=== PATIENT | male | born 1995 | race Caucasian/White ===

== ENCOUNTER 2022-10-04 18:31 | Emergency (ER) | payer OTHER, MEDICAID, SELFPAY ==
[2022-10-04] VITALS (14 sets, daily range): BP systolic 99–140; BP diastolic 52–82; PULSE 80–101; RESP 15–24; TEMP 36.9; O2SAT 95–99; BMI 19.5
--- NOTE | 2022-10-04 18:40 | ED.PSYCH ---
HPI - Psych <DO Graciela Velazquez Last Filed: 10/09/22 02:46> General Chief Complaint: Psychiatric Symptoms Stated Complaint: Ingested a whole bottle of anti-depren medication Time Seen by Provider: 10/04/22 18:40 History of Present Illness HPI Narrative: 27-year-old male smoker without known chronic medical history presents for evaluation of suicidal ideation and attempt earlier today. The patient states that he had been in his normal state of health and went to a music festival over the course of the weekend and consumed a large amount of recreational drugs including ecstasy, cocaine, lipids and Xanax. It is reported that he took trazodone 100 mg tablets times 10 pills earlier today at about 10:00 a.m. to noon in an attempt to kill himself. He had reported this to his girlfriend who is with him at bedside. He had become drowsy but maintaining his airway and controlling secretions without difficulty. He states that he still has suicidal thoughts. He has had these in the past but denies any prior attempt. He has been attempting to connect with a therapist in the community but has thus far been unsuccessful and currently does not have anyone that he routinely Related Data Allergies Allergy/AdvReac Type Severity Reaction Status Date / Time No Known Drug Allergies Allergy Verified 10/04/22 18:53 Review of Systems <DO Graciela Velazquez Last Filed: 10/09/22 02:46> Review of Systems Narrative: GENERAL: See HPI HEENT: Denies sinus pain, ear pain, sore throat, difficulty swallowing, dizziness. RESPIRATORY: Denies dyspnea, cough, wheezing, hemoptysis, sputum. CARDIOVASCULAR: Denies chest pain, palpitations, orthopnea, edema, GASTROINTESTINAL: Denies nausea, vomiting, abdominal pain, diarrhea, constipation, melena. : Denies dysuria, frequency, incontinence, hematuria, urinary retention. MUSCULOSKELETAL: denies weakness, joint pain, or bony pain SKIN: Denies rash, skin lesions, or other NEUROLOGIC: Denies weakness, headache, numbness, change in speech, confusion, seizures, incoordination. PSYCHIATRIC: See HPI 12 point review of systems is negative except for those stated above Patient History <DO Graciela Velazquez Filed: 10/09/22 02:46> Social History Smoking Status: Current every day smoker Exam <Armando Fajardo DO - Last Filed: 10/09/22 02:46> Narrative Exam Narrative: GENERAL: [89] year old patient appears stated age. Well-developed patient, in mild distress. Slurring his words slightly, slightly somnolent but easily arousable HEAD: Atraumatic. Normocephalic. EYES: Pupils equal round and reactive. Extraocular motions intact. No scleral icterus. No injection or drainage. ENT: Nose without bleeding, purulent drainage. Throat without erythema, tonsillar hypertrophy or exudate. Airway patent. Controlling secretions, guarding airway NECK: Trachea midline. Non tender CARDIOVASCULAR: Regular rate and rhythm without murmurs, gallops, or rubs. RESPIRATORY: Clear to auscultation. Breath sounds equal bilaterally. No wheezes, rales, or rhonchi. GASTROINTESTINAL: Abdomen soft, non-tender, nondistended. EXTREMITIES: No edema or joint tenderness. BACK: Nontender without deformity or crepitance. No flank tenderness. NEURO: AOx3. SKIN: No rash or erythema of visible areas Initial Vital Signs Initial Vital Signs: Vital Signs Temperature 98.4 F 10/04/22 18:53 Pulse Rate 94 H 10/04/22 18:53 Respiratory Rate 16 10/04/22 18:53 Blood Pressure 129/82 10/04/22 18:53 Pulse Oximetry 97 10/04/22 18:53 Oxygen Delivery Method Room Air 10/04/22 18:53 <Jacy Sheets, - Last Filed: 10/05/22 18:09> Initial Vital Signs Initial Vital Signs: Vital Signs Temperature 98.4 F 10/04/22 18:53 Pulse Rate 94 H 10/04/22 18:53 Respiratory Rate 16 10/04/22 18:53 Blood Pressure 129/82 10/04/22 18:53 Pulse Oximetry 97 10/04/22 18:53 Oxygen Delivery Method Room Air 10/04/22 18:53 Course <Armando Fajardo DO - Last Filed: 10/09/22 02:46> Course Course Narrative: Nursing contacted poison control on patient arrival and they recommend observation for 6 hours. Social work attempted evaluation but patient was still under the influence and not able to appropriately contribute to the exam Orders Ordered: Discontinued Medications Acetaminophen (Acetaminophen 325 Mg Tablet) 650 mg PO NOW ONE Stop: 10/05/22 14:32 Last Admin: 10/05/22 14:34 Dose: 650 mg Documented By: STEPHEN Al Hydrox/Mg Hydrox/Simethicone (Mag Hydrox/Alum/Simeth 30 Ml Udc) 30 ml PO NOW ONE Stop: 10/05/22 05:55 Last Admin: 10/05/22 05:58 Dose: 30 ml Documented By: GC Famotidine (Famotidine 20 Mg Tablet) 20 mg PO DAILY AILEEN Last Admin: 10/05/22 11:34 Dose: 20 mg Documented By: RB Ibuprofen (Ibuprofen 400 Mg Tablet) 800 mg PO NOW ONE Stop: 10/05/22 16:59 Last Admin: 10/05/22 17:03 Dose: 800 mg Documented By: RB Reevaluation(s) Reevaluation #1: Patient re-evaluated and is awake, alert and oriented, speaking clearly. He does state that he still is having suicidal thoughts and wishes to wait for social work consultation in the morning Vital Signs Vital signs: Vital Signs - 8 hr 10/05/22 10:30 10/05/22 11:00 10/05/22 11:30 Pulse Rate 84 93 H 86 Respiratory Rate 13 21 16 Blood Pressure Pulse Oximetry 97 98 98 10/05/22 12:00 10/05/22 12:30 10/05/22 13:00 Pulse Rate 78 81 89 Respiratory Rate 17 17 15 Blood Pressure Pulse Oximetry 98 97 98 10/05/22 13:06 10/05/22 13:06 10/05/22 13:30 Pulse Rate 88 90 Respiratory Rate 14 Blood Pressure 107/60 Pulse Oximetry 97 98 10/05/22 14:00 10/05/22 14:15 10/05/22 14:15 Pulse Rate 91 H 87 Respiratory Rate 15 Blood Pressure 139/66 Pulse Oximetry 98 98 10/05/22 16:51 10/05/22 16:49 10/05/22 16:50 Pulse Rate 82 81 82 Respiratory Rate 14 Blood Pressure 131/61 Pulse Oximetry 98 99 98 10/05/22 16:50 Pulse Rate Respiratory Rate Blood Pressure 131/61 Pulse Oximetry <Jacy Sheets, - Last Filed: 10/05/22 18:09> Orders Ordered: Discontinued Medications Acetaminophen (Acetaminophen 325 Mg Tablet) 650 mg PO NOW ONE Stop: 10/05/22 14:32 Last Admin: 10/05/22 14:34 Dose: 650 mg Documented By: KB Al Hydrox/Mg Hydrox/Simethicone (Mag Hydrox/Alum/Simeth 30 Ml Udc) 30 ml PO NOW ONE Stop: 10/05/22 05:55 Last Admin: 10/05/22 05:58 Dose: 30 ml Documented By: GC Famotidine (Famotidine 20 Mg Tablet) 20 mg PO DAILY AILEEN Last Admin: 10/05/22 11:34 Dose: 20 mg Documented By: RB Ibuprofen (Ibuprofen 400 Mg Tablet) 800 mg PO NOW ONE Stop: 10/05/22 16:59 Last Admin: 10/05/22 17:03 Dose: 800 mg Documented By: RB Vital Signs Vital signs: Vital Signs - 8 hr 10/05/22 10:30 10/05/22 11:00 10/05/22 11:30 Pulse Rate 84 93 H 86 Respiratory Rate 13 21 16 Blood Pressure Pulse Oximetry 97 98 98 10/05/22 12:00 10/05/22 12:30 10/05/22 13:00 Pulse Rate 78 81 89 Respiratory Rate 17 17 15 Blood Pressure Pulse Oximetry 98 97 98 10/05/22 13:06 10/05/22 13:06 10/05/22 13:30 Pulse Rate 88 90 Respiratory Rate 14 Blood Pressure 107/60 Pulse Oximetry 97 98 10/05/22 14:00 10/05/22 14:15 10/05/22 14:15 Pulse Rate 91 H 87 Respiratory Rate 15 Blood Pressure 139/66 Pulse Oximetry 98 98 10/05/22 16:51 10/05/22 16:49 10/05/22 16:50 Pulse Rate 82 81 82 Respiratory Rate 14 Blood Pressure 131/61 Pulse Oximetry 98 99 98 10/05/22 16:50 Pulse Rate Respiratory Rate Blood Pressure 131/61 Pulse Oximetry MDM - Psych <Armando Fajardo, - Last Filed: 10/09/22 02:46> Lab Data 10/04/22 19:35 10/04/22 19:35 Labs: Lab Results 10/04/22 10/04/22 10/04/22 Range/Units 19:30 19:35 19:35 WBC 8.2 (4.5-11.0) X10^3/uL RBC 4.55 (4.5-5.9) X10^6/uL Hgb 14.2 (13.5-17.5) g/dL Hct 40.4 L (41-53) % MCV 88.9 (80-100) fL MCH 31.3 (26-34) PG MCHC 35.2 (30-36) % RDW 12.7 (11.6-14.8) % Plt Count 356 (150-400) X10^3/uL Neut % (Auto) 76.7 H (50-75) % Lymph % (Auto) 14.5 L (25-40) % [place] % (Auto) 6.9 (3-14) % Eos % (Auto) 1.1 L (2-4) % Baso % (Auto) 0.8 (0-2) % Neut # (Auto) 6300 (3902-4112) /uL Lymph # (Auto) 1200 (5252-5005) /uL [place] # (Auto) 600 (0-900) /uL Eos # (Auto) 100 (0-450) /uL Baso # (Auto) 100 (0-100) /uL Sodium 134 L (137-145) mmol/L Potassium 3.9 (3.4-5.1) mmol/L Chloride 99 (98-107) mmol/L Carbon Dioxide 28 (22-32) mmol/L BUN 10 (9-20) mg/dL Creatinine 0.87 (0.66-1.25) mg/dL Estimated GFR > 60 (>60) mL/min BUN/Creatinine Ratio 11.5 (6-22) Glucose 223 H (70-100) mg/dL Calcium 9.0 (8.4-10.2) mg/dL Total Bilirubin 0.6 (0.2-1.3) mg/dL AST 26 (17-59) IU/L ALT 23 (<50) IU/L Alkaline Phosphatase 63 (38-126) U/L Total Protein 7.0 (6.3-8.2) g/dL Albumin 4.0 (3.5-5.0) g/dL Globulin 3.0 (1.7-4.1) g/dL Albumin/Globulin Ratio 1.3 (1.0-2.8) TSH (0.47-4.68) uIU/mL Free T4 (0.78-2.19) ng/dL Salicylates < 1.0 (<20) mg/dL U Opiates 300ng/mL cut Negative (Negative) Ur Oxycodone Screen Negative (Negative) Urine Methadone Screen Negative (Negative) Acetaminophen < 10 (10-30) ug/mL Ur Barbiturates Screen Negative (Negative) U Tricyclic Antidepress Negative (Negative) Ur Phencyclidine Scrn Negative (Negative) Ur Amphetamines Screen Positive H (Negative) U Methamphetamines Scrn Positive H (Negative) Ur MDMA Scrn (Ecstasy) Positive H (Negative) U Benzodiazepines Scrn Positive H (Negative) Urine Cocaine Screen Positive H (Negative) U Marijuana (THC) Screen Positive H (Negative) Ethyl Alcohol < 10 ( - 10) mg/dL SARS-CoV-2 (PCR) (Negative) 10/04/22 10/05/22 Range/Units 19:35 14:36 WBC (4.5-11.0) X10^3/uL RBC (4.5-5.9) X10^6/uL Hgb (13.5-17.5) g/dL Hct (41-53) % MCV (80-100) fL MCH (26-34) PG MCHC (30-36) % RDW (11.6-14.8) % Plt Count (150-400) X10^3/uL Neut % (Auto) (50-75) % Lymph % (Auto) (25-40) % [place] % (Auto) (3-14) % Eos % (Auto) (2-4) % Baso % (Auto) (0-2) % Neut # (Auto) (4355-7537) /uL Lymph # (Auto) (7395-1435) /uL [place] # (Auto) (0-900) /uL Eos # (Auto) (0-450) /uL Baso # (Auto) (0-100) /uL Sodium (137-145) mmol/L Potassium (3.4-5.1) mmol/L Chloride (98-107) mmol/L Carbon Dioxide (22-32) mmol/L BUN (9-20) mg/dL Creatinine (0.66-1.25) mg/dL Estimated GFR (>60) mL/min BUN/Creatinine Ratio (6-22) Glucose (70-100) mg/dL Calcium (8.4-10.2) mg/dL Total Bilirubin (0.2-1.3) mg/dL AST (17-59) IU/L ALT (<50) IU/L Alkaline Phosphatase (38-126) U/L Total Protein (6.3-8.2) g/dL Albumin (3.5-5.0) g/dL Globulin (1.7-4.1) g/dL Albumin/Globulin Ratio (1.0-2.8) TSH 0.365 L (0.47-4.68) uIU/mL Free T4 0.86 (0.78-2.19) ng/dL Salicylates (<20) mg/dL U Opiates 300ng/mL cut (Negative) Ur Oxycodone Screen (Negative) Urine Methadone Screen (Negative) Acetaminophen (10-30) ug/mL Ur Barbiturates Screen (Negative) U Tricyclic Antidepress (Negative) Ur Phencyclidine Scrn (Negative) Ur Amphetamines Screen (Negative) U Methamphetamines Scrn (Negative) Ur MDMA Scrn (Ecstasy) (Negative) U Benzodiazepines Scrn (Negative) Urine Cocaine Screen (Negative) U Marijuana (THC) Screen (Negative) Ethyl Alcohol ( - 10) mg/dL SARS-CoV-2 (PCR) Negative (Negative) Urine Dip Bedside Urine Glucose Negative Bedside Urine Bilirubin - Negative Bedside Urine Ketone - Negative Urine Specific [place] 1.005 Bedside Urine Occult Blood - Negative Bedside Urine pH 6.5 Bedside Urine Protein - Negative Bedside Urine Urobilinogen - Negative Bedside Urine Nitrite - Negative Bedside Urine Leukocytes - Negative Esterase MDM Narrative Medical decision making narrative: 27-year-old male presents with suicidal ideation and attempt, thankfully he is nearly out of the observation window for the trazodone at time of arrival but over the course of the night continues to serious suicidal ideations and has had trouble establishing with a therapist in the community. He wishes to see social work here later today to discuss options. Patient signed out to Dr. Sheets for final disposition <Jacy Sheets, - Last Filed: 10/05/22 18:09> Lab Data Labs: Lab Results 10/04/22 10/04/22 10/04/22 Range/Units 19:30 19:35 19:35 WBC 8.2 (4.5-11.0) X10^3/uL RBC 4.55 (4.5-5.9) X10^6/uL Hgb 14.2 (13.5-17.5) g/dL Hct 40.4 L (41-53) % MCV 88.9 (80-100) fL MCH 31.3 (26-34) PG MCHC 35.2 (30-36) % RDW 12.7 (11.6-14.8) % Plt Count 356 (150-400) X10^3/uL Neut % (Auto) 76.7 H (50-75) % Lymph % (Auto) 14.5 L (25-40) % [place] % (Auto) 6.9 (3-14) % Eos % (Auto) 1.1 L (2-4) % Baso % (Auto) 0.8 (0-2) % Neut # (Auto) 6300 (5611-7259) /uL Lymph # (Auto) 1200 (6522-4423) /uL [place] # (Auto) 600 (0-900) /uL Eos # (Auto) 100 (0-450) /uL Baso # (Auto) 100 (0-100) /uL Sodium 134 L (137-145) mmol/L Potassium 3.9 (3.4-5.1) mmol/L Chloride 99 (98-107) mmol/L Carbon Dioxide 28 (22-32) mmol/L BUN 10 (9-20) mg/dL Creatinine 0.87 (0.66-1.25) mg/dL Estimated GFR > 60 (>60) mL/min BUN/Creatinine Ratio 11.5 (6-22) Glucose 223 H (70-100) mg/dL Calcium 9.0 (8.4-10.2) mg/dL Total Bilirubin 0.6 (0.2-1.3) mg/dL AST 26 (17-59) IU/L ALT 23 (<50) IU/L Alkaline Phosphatase 63 (38-126) U/L Total Protein 7.0 (6.3-8.2) g/dL Albumin 4.0 (3.5-5.0) g/dL Globulin 3.0 (1.7-4.1) g/dL Albumin/Globulin Ratio 1.3 (1.0-2.8) TSH (0.47-4.68) uIU/mL Free T4 (0.78-2.19) ng/dL Salicylates < 1.0 (<20) mg/dL U Opiates 300ng/mL cut Negative (Negative) Ur Oxycodone Screen Negative (Negative) Urine Methadone Screen Negative (Negative) Acetaminophen < 10 (10-30) ug/mL Ur Barbiturates Screen Negative (Negative) U Tricyclic Antidepress Negative (Negative) Ur Phencyclidine Scrn Negative (Negative) Ur Amphetamines Screen Positive H (Negative) U Methamphetamines Scrn Positive H (Negative) Ur MDMA Scrn (Ecstasy) Positive H (Negative) U Benzodiazepines Scrn Positive H (Negative) Urine Cocaine Screen Positive H (Negative) U Marijuana (THC) Screen Positive H (Negative) Ethyl Alcohol < 10 ( - 10) mg/dL SARS-CoV-2 (PCR) (Negative) 10/04/22 10/05/22 Range/Units 19:35 14:36 WBC (4.5-11.0) X10^3/uL RBC (4.5-5.9) X10^6/uL Hgb (13.5-17.5) g/dL Hct (41-53) % MCV (80-100) fL MCH (26-34) PG MCHC (30-36) % RDW (11.6-14.8) % Plt Count (150-400) X10^3/uL Neut % (Auto) (50-75) % Lymph % (Auto) (25-40) % [place] % (Auto) (3-14) % Eos % (Auto) (2-4) % Baso % (Auto) (0-2) % Neut # (Auto) (8439-2818) /uL Lymph # (Auto) (0918-5020) /uL [place] # (Auto) (0-900) /uL Eos # (Auto) (0-450) /uL Baso # (Auto) (0-100) /uL Sodium (137-145) mmol/L Potassium (3.4-5.1) mmol/L Chloride (98-107) mmol/L Carbon Dioxide (22-32) mmol/L BUN (9-20) mg/dL Creatinine (0.66-1.25) mg/dL Estimated GFR (>60) mL/min BUN/Creatinine Ratio (6-22) Glucose (70-100) mg/dL Calcium (8.4-10.2) mg/dL Total Bilirubin (0.2-1.3) mg/dL AST (17-59) IU/L ALT (<50) IU/L Alkaline Phosphatase (38-126) U/L Total Protein (6.3-8.2) g/dL Albumin (3.5-5.0) g/dL Globulin (1.7-4.1) g/dL Albumin/Globulin Ratio (1.0-2.8) TSH 0.365 L (0.47-4.68) uIU/mL Free T4 0.86 (0.78-2.19) ng/dL Salicylates (<20) mg/dL U Opiates 300ng/mL cut (Negative) Ur Oxycodone Screen (Negative) Urine Methadone Screen (Negative) Acetaminophen (10-30) ug/mL Ur Barbiturates Screen (Negative) U Tricyclic Antidepress (Negative) Ur Phencyclidine Scrn (Negative) Ur Amphetamines Screen (Negative) U Methamphetamines Scrn (Negative) Ur MDMA Scrn (Ecstasy) (Negative) U Benzodiazepines Scrn (Negative) Urine Cocaine Screen (Negative) U Marijuana (THC) Screen (Negative) Ethyl Alcohol ( - 10) mg/dL SARS-CoV-2 (PCR) Negative (Negative) Urine Dip Bedside Urine Glucose Negative Bedside Urine Bilirubin - Negative Bedside Urine Ketone - Negative Urine Specific [place] 1.005 Bedside Urine Occult Blood - Negative Bedside Urine pH 6.5 Bedside Urine Protein - Negative Bedside Urine Urobilinogen - Negative Bedside Urine Nitrite - Negative Bedside Urine Leukocytes - Negative Esterase MDM Narrative Medical decision making narrative: 27-year-old male presents with suicidal ideation and attempt, thankfully he is nearly out of the observation window for the trazodone at time of arrival but over the course of the night continues to serious suicidal ideations and has had trouble establishing with a therapist in the community. He wishes to see social work here later today to discuss options. Patient signed out to Dr. Sheets for final disposition Patient with [employer] requesting voluntary placement. Patient has been medically cleared. [facility] accepts but required EKG as QTC had trended upwards even though it has been far outside 24 hours and he had been cleared at 6:00 a.m. per poison control. Patient's repeat EKG shows a rate of 72, IL 150 QRS 80 QTC of 400. No acute ST changes. Patient continues to be medically cleared. Accepted by [facility]. Discharge Plan Departure Patient Disposition: Xfer Psychiatric Hosp Clinical Impression: Depression with suicidal ideation, Suicide attempt, Polysubstance abuse Referrals: Rajiv Galvez MD [Primary Care Provider] -
--- NOTE | 2022-10-04 19:10 | PC.NURSE ---
Poison control called They expected mild drowsiness. Treatment-supportive care,at least 6 hours after ingestion monitoring Tox screen,EKG (QT prlonged)
[2022-10-04 19:46] LABS: Add Manual Diff / Slide Review NO; Basophils Absolute Auto 100 /uL (0-100); Basophils Percent Auto 0.8 % (0-2); Eosinophils Absolute Auto 100 /uL (0-450); Eosinophils Percent Auto 1.1 % (2-4); Hematocrit 40.4 % (41-53); Hemoglobin 14.2 g/dL (13.5-17.5); Lymphocytes Absolute Auto 1200 /uL (1100-4500); Lymphocytes Percent Auto 14.5 % (25-40); Mean Corpuscular HGB Conc 35.2 % (30-36); Mean Corpuscular Hemoglobin 31.3 PG (26-34); Mean Corpuscular Volume 88.9 fL (80-100); Monocytes Absolute Auto 600 /uL (0-900); Monocytes Percent Auto 6.9 % (3-14); Neutrophils Absolute Auto 6300 /uL (1500-7000); Neutrophils Percent Auto 76.7 % (50-75); Platelet Count 356 X10^3/uL (150-400); Red Blood Cell Count 4.55 X10^6/uL (4.5-5.9); Red Cell Distribution Width 12.7 % (11.6-14.8); White Blood Cell Count 8.2 X10^3/uL (4.5-11.0)
[2022-10-04 19:48] LABS: UR Morphine/Opiate cutoff 300 Negative (Negative); Ur Creatinine Normal (Normal); Ur Specific Gravity Normal (Normal); Urine Amphetamines Positive (Negative); Urine Barbiturates Negative (Negative); Urine Benzodiazepines Positive (Negative); Urine Cocaine Positive (Negative); Urine MDMA Positive (Negative); Urine Methadone Negative (Negative); Urine Methamphetamines Positive (Negative); Urine Oxycodone Negative (Negative); Urine Phencyclidine Negative (Negative); Urine Tetrahydrocannabinol Positive (Negative); Urine Tricyclic Antidepressant Negative (Negative); Urine pH Normal (Normal)
[2022-10-04 20:03] LABS: Acetaminophen < 10 ug/mL (10-30); Alanine Aminotransferase 23 IU/L (<50); Albumin Globulin Ratio 1.3 (1.0-2.8); Alkaline Phosphatase 63 U/L (38-126); Aspartate Aminotransferase 26 IU/L (17-59); BUN Creatinine Ratio 11.5 (6-22); Bilirubin Total 0.6 mg/dL (0.2-1.3); Blood Urea Nitrogen 10 mg/dL (9-20); Carbon Dioxide 28 mmol/L (22-32); Chloride 99 mmol/L (98-107); Estimated Glomerular Filt Rate > 60 mL/min (>60); Ethanol (ETOH) < 10 mg/dL; Glucose 223 mg/dL (70-100); HEMOLYSIS < 15 (0-50); Potassium 3.9 mmol/L (3.4-5.1); Salicylate < 1.0 mg/dL (<20); Sodium 134 mmol/L (137-145)
--- NOTE | 2022-10-04 20:04 | CM.SWNOTE ---
RUBBER COMPOUNDER SUPERVISOR Assessment Note Patient is 27 y/o male who presents to ED via POV with ex girlfriend after taking Ectacy, cocaine, whipits and xanax at music festival at the [facility] [place] this past weekend. Patient endorses today he took 10 trazadone 100mg (not prescribed to him) earlier today between 10-12 with intent to kill self. Patient states I didn't want to wake up. RUBBER COMPOUNDER SUPERVISOR enters room to meet with patient, present in room is patient's ex girlfriend. Patient gives consent for ex girlfriend to be present during assessment. Patient presents as A/Ox3, patient presents as euthymic but fatigued, full range, congruent with mood. Patient endorses hx of SI but denies plans. Patient endorses he took trazadone this morning with intent to kill self when he was on the influence of drugs. Patient and ex girlfriend endorse that patient is in the the process of moving, recently broke up with girlfriend and got into an argument due to concern for patient's drug use. ex girlfriend has concerns for patient's self destructive behaviors. It is reported a year ago patient was pulled over for reckless driving when experiencing SI and LE stayed with patient but patient did not go to hospital. Patient's ex girlfriend endorses concern that patient's parents are addicts, patient has addictive personality and is concerned for his susceptibility to become addicted to substances. It is reported that patient is in the process of looking into MH providers that accept his insurance and patient has PCP appt on 10/06/[address] Gonzalez. Patient denies HI, hx of previous suicide attempts or hx of self harm. Patient endorses hx of ETOH use. 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 It is reported that patient has several supports from ex girlfriend, her parents and patient's co-workers. Patient endorses difficulty expressing self but is more open to MH outpatient and JIN providers than before. RUBBER COMPOUNDER SUPERVISOR discusses voluntary hospitalization, patient endorses he would like to discuss this with his boss first because he does not know if he could get time off work. RUBBER COMPOUNDER SUPERVISOR discusses that a medical note could be provided. Patient primarily endorsed preference to discharge to home. Poison control was contacted and patient will need at least 6 hours of monitoring and observation in ED. It is the opinion of this RUBBER COMPOUNDER SUPERVISOR that patient should be re-evaluated upon medical clearance to discuss appropriate plan of care. RUBBER COMPOUNDER SUPERVISOR reviews the above with ED provider who indicates agreement and understanding. RUBBER COMPOUNDER SUPERVISOR discusses with patient that RUBBER COMPOUNDER SUPERVISOR and/or ED provider will re-evaluate patient in the morning and discuss plan of care. RUBBER COMPOUNDER SUPERVISOR reports that if patient is discharged before RUBBER COMPOUNDER SUPERVISOR arrives to work tomorrow, RUBBER COMPOUNDER SUPERVISOR will call patient. Patient indicates agreement and understanding. Patient endorses he has crisis contact information, RUBBER COMPOUNDER SUPERVISOR discusses the importance of reaching out to supports when having intrusive thoughts. Plan: ED provider to assess and monitor patient further per poison control recommendations. ED provider and RUBBER COMPOUNDER SUPERVISOR to evaluate patient further upon medical clearance regarding appropriate plan of care. If patient discharges to home prior to RUBBER COMPOUNDER SUPERVISOR's arrival to work, RUBBER COMPOUNDER SUPERVISOR to call patient to f/u with outpatient resources. Evelyn Garcia, SEARCH ENGINE OPTIMIZER
[2022-10-04 20:33] LABS: Free T4, Direct Thyroxine 0.86 ng/dL (0.78-2.19)
[2022-10-04 20:47] LABS: Thyroid Stimulating Hormone 0.365 uIU/mL (0.47-4.68)
--- NOTE | 2022-10-04 21:16 | PC.NURSE ---
Poison control called & updated on labs & ekg. They stated that at this point it was safe to close the case on there end. Dr Fajardo notified.
[2022-10-05] VITALS (37 sets, daily range): BP systolic 90–139; BP diastolic 52–85; PULSE 76–105; RESP 8–24; O2SAT 93–99
[2022-10-05] MEDS: MAG HYDROX/ALUM/SIMETH 30 ML UDC PO (05:58)
[2022-10-05] MEDS: FAMOTIDINE 20 MG TABLET PO (11:34)
--- NOTE | 2022-10-05 12:43 | PC.NURSE ---
Pt downgraded to moderate risk per Dr Sheets and Evelyn ARRIAGA.
--- NOTE | 2022-10-05 14:30 | CM.SWNOTE ---
Addendum entered by Evelyn Garcai 10/05/22 17:12: SHOP LEAD Note SHOP LEAD calls [facility] (per patient request), it is reported they are at capacity. SHOP LEAD calls [facility], it is reported that they have beds and can review patient. SHOP LEAD faxes clinicals for review. It is reported that patient is accepted by [facility] for arrival time of 2029. SHOP LEAD reviews this with patient who indicates understanding and agreement. MILITARY SOURCE OPERATIONS OFFICER setting up transport. SHOP LEAD to provide patient with list of MH and JIN outpatient providers and crisis contacts. Plan: Patient to transfer to [facility] via BLS this evening. ISELA Coleman Original Note: SHOP LEAD Note SHOP LEAD re-evaluates patient today. Patient presents as dysthymic, patient endorses he is super depressed and has been tearful and sad today. Patient denies current thoughts of SI but endorses concern for his depression and is seeking help. SHOP LEAD reviews voluntary inpatient hospitalization with patient and his ex girlfriend/friend and patient endorses agreement to voluntary inpatient hospitalization to address co-occurring disorders of MH and JIN. It is the opinion of this SHOP LEAD that patient is appropriate for and will benefit from voluntary inpatient hospitalization for dual dx for safety, crisis stabilization and medication management. SHOP LEAD reviews the above with ED provider Dr. Sheets who indicates agreement and understanding. Plan: SHOP LEAD to seek bed for patient, patient is medically clear at this time. ISELA Coleman
[2022-10-05] MEDS: ACETAMINOPHEN 325 MG TABLET 650 MG PO (14:34)
[2022-10-05 14:53] LABS: COVID19 -Nasal RAPID Negative (Negative)
[2022-10-05] MEDS: IBUPROFEN 400 MG TABLET 800 MG PO (17:03)
== END 2022-10-05 20:25 ==
PROVIDERS: Emergency Medicine; Emergency Provider Emergency Medicine; PCP Family Medicine
DX: T43.212A Poisoning by selective serotonin and norepinephrine reuptake inhibitors, intentional self-harm, initial encounter (principal); F32.A Depression, unspecified; F19.10 Other psychoactive substance abuse, uncomplicated; Z20.822 Contact with and (suspected) exposure to COVID-19
CPT/HCPCS: 36415; 80053; 80305; 80320; 80329; 81003; 84439; 84443; 85025; 87635; 93005; 93010; 99284; C9803; A9270; G0480